=== PATIENT | male | born 1935 | race Caucasian/White ===

== ENCOUNTER 2017-03-24 10:11 | Inpatient (IN) | payer BC, MEDICARE ==
[2017-03-24] MEDS ORDERED: ALBUTEROL SULFATE 0.083% NEB 2.5 MG/3 ML AMPUL NEB ONE (10:27)
--- NOTE | 2017-03-24 11:34 | RADIOLOGY REPORT (SQ) ---
EXAM DESCRIPTION: CT HEAD WITHOUT COMPLETED DATE/TIME: 03/24/2017 11:24 am REASON FOR STUDY: ams COMPARISON: None. TECHNIQUE: Axial images acquired through the brain without intravenous contrast. Images reviewed wi th bone, brain and subdural windows. Images stored on PACS. All CT scanners at this facility use dose modulation, iterative reconstruction, and/or weight based d osing when appropriate to reduce radiation dose to as low as reasonably achievable (ALARA). [facility]: Dose Right [facility]: CareDose [facility]: Dose Right [facility]: Teradose 4D [facility]: [employer] RADIATION DOSE: CT Rad equipment meets quality standard of care and radiation dose reduction techniq ues were employed. CTDIvol: 28.0 mGy. DLP: 1166 mGy-cm. mGy. LIMITATIONS: Motion artifact, patient scanned twice FINDINGS: Motion artifact, patient scanned twice. On images without motion, there is no gross acute intracranial hemorrhage, mass effect, or midline sh ift. No hydrocephalus. White matter disease in the bifrontal and biparietal regions. Question old lacunar infarct right cer ebellar hemisphere. There is fluid in the sphenoid sinus and mucous membrane thickening in the right maxillary sinus IMPRESSION: Very limited study. No gross acute intracranial hemorrhage mass effect or midline shift . EVIDENCE OF ACUTE STROKE: NO. COMMENT: Quality ID # [id number]: Final reports with documentation of one or more dose reduction techniques (e.g., Automated exposure control, adjustment of the mA and/or kV according to patient size, use of iterative reconstruction technique) TECHNICAL DOCUMENTATION: JOB ID: [id number] [employer]- All Rights Reserved
[2017-03-24] MEDS ORDERED: KETAMINE HCL INJ 500 MG/10 ML VIAL IV ONE (12:05)
--- NOTE | 2017-03-24 12:51 | ER Document Report ---
Doctor's Note Notes: 03/24/17 12:46 TONG Anderson saw the patient initially. Patient was hostile and angry and did not want anything performed on him. Iliac CAT scan and chest x-ray were ordered however they were unable to obtain them secondary to the patient's combativeness and reluctance to have the test done. TONG Anderson and I went to the patient's room to talk to the family as well as the patient. On entering the room the patient appeared as a cachectic male lying in the gurney in no acute distress. He was wearing 2 L of nasal cannula and satting 96%. Patient's sons as well as his were in the room. According to the and a son, the patient was found with his oxygen off with decreased mentation this morning. They stated that the patient is normally in his bed and he gets up sometimes to ambulate to a commode. He had a point with his primary medical doctor today for consult for in home help for the but the brought the patient here instead for evaluation. The patient has not had any fevers nausea vomiting lately. The states that he is not eating however 1 of the son states that he is. I attempted to talk to the patient to see if he was alert and oriented 3 and have the capacity to refuse medical care. He angrily pushed me away when I attempted to examine him. Dated leave me the hell alone I do not want anything done. I asked him his name he said Yuli. He also gave the incorrect year. The patient's family members state that the patient is normally argumentative and feisty. Since I could not elicit that the patient had the capacity to refuse medical care I talked to the . She stated at this point that she would like everything done as far as testing. Asked her what the patient's wishes would be and if he has ever talked to her about end-of-life care. I did ask her what the patient's wishes were if he ever discussed with her his end-of-life care. She states that all he said was he "wants to in his own bed at his own house". I did let the family know including the that in order to get the testing including urinalysis, CAT scan and blood work, the patient would need to be sedated. The at this point agreed to this. Tell her I was indeed not done talking to her about it. I stated that she needed to know that the risks of giving him sedating medications is moderate to high and that these medications can decrease his respiratory drive making him stop breathing. 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 Patient's stated she still wanted this done. She wanted to know what is going on. I discussed with the nurse practitioner that I would give ketamine 0.5 mix per kick IV. This was done. CT and chest x- ray as well as blood work and urinalysis were obtained. When the patient was coming back from his radiological studies, his pulse ox did drop to the 70s. The patient's pulse ox did increase quickly with 100% nonrebreather. Patient is currently 100% on his pulse ox. 03/24/17 12:54
--- NOTE | 2017-03-24 12:51 | ER Document Report ---
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 Son states that he went to the bedroom to wake him up and patient did not have his oxygen on which he usually wears, 2 L all the time, at home. Patient was not responsive to sun. states that last night he did not want to eat anymore and told the that he "just wants water and no more food." They deny that he is complained of anything for the last couple of days and that he was pretty much acting normally until yesterday around dinnertime. Patient is combative and unable to tell me anything or answer any questions. Patient continues to say "just leave me the piss alone!" TRAVEL OUTSIDE OF THE [place] IN LAST 30 DAYS: No - Related Data Allergies/Adverse Reactions: No Known Allergies Allergy (Verified 03/25/14 05:39) Past Medical History - General Information source: Patient - Social History Smoking Status: Former Smoker Family History: Reviewed & Not Pertinent Patient has suicidal ideation: No Patient has homicidal ideation: No - Past Medical History Cardiac Medical History: Reports: Hx Hypertension Pulmonary Medical History: Reports: Hx COPD Renal/ Medical History: Denies: Hx Peritoneal Dialysis - Immunizations Hx Diphtheria, Pertussis, Tetanus Vaccination: Yes Hx Pneumococcal Vaccination: 01/31/14 Review of Systems - Review of Systems Constitutional: No symptoms reported EENT: No symptoms reported Cardiovascular: See HPI Respiratory: See HPI Gastrointestinal: No symptoms reported Genitourinary: No symptoms reported Male Genitourinary: No symptoms reported Musculoskeletal: No symptoms reported Skin: No symptoms reported Hematologic/Lymphatic: No symptoms reported Neurological/Psychological: See HPI Physical Exam - Vital signs Vitals: Resp BP 23 H 125/67 03/24/17 10:21 03/24/17 10:21 - Notes Notes: PHYSICAL EXAMINATION: GENERAL: cachectic, chronically ill-appearing, on nasal cannula oxygen, but in no acute distress. HEAD: Atraumatic, normocephalic. EYES: Pupils equal round and reactive to light, sclera anicteric, conjunctiva are normal. ENT: Moist mucous membranes. LUNGS: rhonchi right lower lobe, No wheezes rales HEART: Regular rate and rhythm without murmurs ABDOMEN: pt combative, will not cooperate EXTREMITIES: pt combative, will not cooperate, no pitting edema. No cyanosis. NEUROLOGICAL: pt combative, will not cooperate PSYCH:pt combative, will not cooperate SKIN: Warm, Dry, normal turgor, no rashes or lesions noted Course - Re-evaluation Re-evalutation: 03/24/17 14:12 Pt is not cooperative, swings at staff and answers questions such as "what is your name?" "Esmerelda" and "where are you?" "Piss off." cannot assess neuro exam due to this. Family wants "everything done, somethings wrong!" So ketamine was given to sedate pt in order to obtain CT of the head, chest x-ray, blood work and urinalysis. CT of the head negative for any abnormality, chest x-ray reports a right lower lobe pneumonia, urinalysis clear for infection, lab work reveals a normal white blood cell count but elevated absolute neutrophils, VBG reports a pH of 7.29 and a PCO2 of 99.6, patient was placed on BiPAP at this time. Patient's CO2 on chemistry is 44. Patient also has an elevated troponin of 2.99. No EKG changes. No obvious ischemia on EKG. He did have a long discussion with the family who made him a DO NOT RESUSCITATE during this visit, they do not want him intubated and they do not want chest compressions if the instance were to happen where his heart were to stop or he were to code. I did also discuss his elevated troponin and that that likely means that he may be having a heart attack at this time with the and son, they do not want him to have any kind of invasive procedures such as cardiac catheterization. I did explain the procedure to them. They would like for him to stay here and do noninvasive medication instead. Patient tolerating BiPAP. Maddy Driscoll NP accepts pt for admission at this time. 03/24/17 14:18 - Vital Signs Vital signs: Temp Pulse Resp BP Pulse Ox 99.5 F 28 H 135/75 H 03/24/17 11:12 03/24/17 11:01 03/24/17 11:00 - Laboratory Result Diagrams: 03/24/17 12:58 03/24/17 12:58 Laboratory results interpreted by me: 03/24/17 03/24/17 03/24/17 12:30 12:58 12:58 MCHC 31.6 L RDW 15.6 H Seg Neuts % (Manual) 95 H Lymphocytes % (Manual) 2 L Abs Neuts (Manual) 9.5 H Abs Lymphs (Manual) 0.2 L VBG pH VBG pCO2 VBG HCO3 Potassium 5.1 H Chloride 90 L Carbon Dioxide 44 H* BUN 22 H Glucose 141 H AST 88 H CK-MB (CK-2) Urine Protein 30 H Urine Blood SMALL H Urine Urobilinogen 4.0 H 03/24/17 03/24/17 12:58 12:58 MCHC RDW Seg Neuts % (Manual) Lymphocytes % (Manual) Abs Neuts (Manual) Abs Lymphs (Manual) VBG pH 7.29 L VBG pCO2 99.6 H* VBG HCO3 46.4 H Potassium Chloride Carbon Dioxide BUN Glucose AST CK-MB (CK-2) 16.10 H Urine Protein Urine Blood Urine Urobilinogen Critical Care Note - Critical Care Note Total time excluding time spent on procedures (mins): 35 - 35 minutes spent in critical care time with patient, consulted with attending, speaking with family , placing orders and evaluating tests and labs. Discharge - Discharge Clinical Impression: NSTEMI (non-ST elevated myocardial infarction), DNR (do not resuscitate) COPD (chronic obstructive pulmonary disease) Qualifiers: COPD type: unspecified COPD Qualified Code(s): J44.9 - Chronic obstructive pulmonary disease, unspecified Pneumonia Qualifiers: Pneumonia type: due to unspecified organism Laterality: right Lung location: lower lobe of lung Qualified Code(s): J18.1 - Lobar pneumonia, unspecified organism Condition: Fair Disposition: ADMITTED INPATIENT Admitting Provider: Hospitalist - Dr. Millan Unit Admitted: Telemetry
--- NOTE | 2017-03-24 13:00 | RADIOLOGY REPORT (SQ) ---
EXAM DESCRIPTION: CT HEAD WITHOUT COMPLETED DATE/TIME: 03/24/2017 12:49 pm REASON FOR STUDY: ams COMPARISON: CT brain 03/24/2017, 1115 hours TECHNIQUE: Axial images acquired through the brain without intravenous contrast. Images reviewed wi th bone, brain and subdural windows. Images stored on PACS. All CT scanners at this facility use dose modulation, iterative reconstruction, and/or weight based d osing when appropriate to reduce radiation dose to as low as reasonably achievable (ALARA). [facility]: Dose Right [facility]: CareDose [facility]: Dose Right [facility]: Teradose 4D [facility]: [employer] RADIATION DOSE: 92 mGy. LIMITATIONS: Motion artifact, patient scanned twice FINDINGS: No CT evidence of acute large territory ischemic change, acute intracranial hemorrhage, ma ss effect, or midline shift. Moderate bifrontal and biparietal small vessel ischemic change in the h emispheric white matter. Benign calcifications of the choroid plexus. No skull fracture. There is an air-fluid level in the right sphenoid sinus from acute sinusitis, and mucous membrane thickening in the right maxillary sinus. Mastoid air cells demonstrate trace fluid inferiorly. Report discussed with Lilly FORTUNE in the emergency room IMPRESSION: Limited study. Chronic white matter disease. Right sphenoid sinusitis EVIDENCE OF ACUTE STROKE: NO. COMMENT: Quality ID # [id number]: Final reports with documentation of one or more dose reduction techniques (e.g., Automated exposure control, adjustment of the mA and/or kV according to patient size, use of iterative reconstruction technique) TECHNICAL DOCUMENTATION: JOB ID: [id number] [employer]- All Rights Reserved
[2017-03-24 13:02] LABS: APPEARANCE,URINE CLOUDY; BILIRUBIN,URINE NEGATIVE (NEGATIVE); COLOR,URINE YELLOW; GLUCOSE, URINE NEGATIVE (NEGATIVE); KETONES,URINE NEGATIVE (NEGATIVE); LEUKOCYTE ESTERASE,URINE NEGATIVE (NEGATIVE); NITRITE,URINE NEGATIVE (NEGATIVE); PROTEIN,URINE 30 mg/dL (NEGATIVE); URINE SPECIFIC GRAVITY 1.015
[2017-03-24 13:12] LABS: HEMATOCRIT 46.6 % (37.9-51.0); HEMOGLOBIN 14.7 g/dL (13.5-17.0); MEAN CORPUSCULAR HEMOGLOBIN 28.1 pg (27.0-33.4); MEAN CORPUSCULAR HGB CONC 31.6 g/dL (32.0-36.0); MEAN CORPUSCULAR VOLUME 89 fl (80-97); PLATELET COUNT 249 10^3/uL (150-450); RED BLOOD COUNT 5.24 10^6/uL (4.35-5.55); RED CELL DISTRIBUTION WIDTH 15.6 % (11.5-14.0); VENOUS BLOOD BASE EXCESS 14.4 mmol/L; VENOUS BLOOD HCO3 46.4 mmol/L (20-32); VENOUS BLOOD PH 7.29 (7.30-7.42)
[2017-03-24 13:14] LABS: VENOUS BLOOD PCO2 99.6 mmHg (35-63)
--- NOTE | 2017-03-24 13:15 | RADIOLOGY REPORT (SQ) ---
EXAM DESCRIPTION: CHEST SINGLE VIEW COMPLETED DATE/TIME: 03/24/2017 1:05 pm REASON FOR STUDY: ams COMPARISON: Chest films 03/25/2014, 02/22/2014 EXAM PARAMETERS: NUMBER OF VIEWS: One view. TECHNIQUE: Single frontal radiographic view of the chest acquired. RADIATION DOSE: NA LIMITATIONS: None. FINDINGS: LUNGS AND PLEURA: Compared to prior studies there is now consolidation at the right lung b ase atelectasis versus pneumonia. Small right pleural effusion may be present. Left lung hyperinflated and hyperlucent from obstructive disease. There is mild pulmonary vascular p rominence and underlying fluid overload or congestive failure could not be excluded. No pneumothorax. MEDIASTINUM AND HILAR STRUCTURES: Rotated, no gross lesions HEART AND VASCULAR STRUCTURES: Rotated, no gross cardiomegaly BONES: No acute findings. HARDWARE: None in the chest. OTHER: No other significant finding. IMPRESSION: Since prior study 03/25/2014, patient has developed a small right pleural effusion and co nsolidation in the right lower lobe worrisome for pneumonia. This should be followed to radiographic clearing, to exclude an underlying right hilar mass and postobstructive pneumonia TECHNICAL DOCUMENTATION: JOB ID: [id number]- All Rights Reserved
[2017-03-24] MEDS ORDERED: LEVOFLOXACIN 750 MG/D5W RTU 750 MG/150 ML RTUPB IV ONE (13:28)
[2017-03-24 13:30] LABS: ALANINE AMINOTRANSFERASE 55 U/L (21-72); ALBUMIN 3.7 g/dL (3.5-5.0); ALKALINE PHOSPHATASE 69 U/L (38-126); ASPARTATE AMINO TRANSFERASE 88 U/L (17-59); BILIRUBIN,DIRECT 0.2 mg/dL (0.0-0.4); BILIRUBIN,TOTAL 0.8 mg/dL (0.2-1.3); BLOOD UREA NITROGEN 22 mg/dL (7-20); CALCIUM 9.9 mg/dL (8.4-10.2); CHLORIDE 90 mmol/L (98-107); CREATINE KINASE 144 U/L (55-170); GLUCOSE 141 mg/dL (75-110); POTASSIUM 5.1 mmol/L (3.6-5.0); SODIUM 144.6 mmol/L (137-145)
[2017-03-24 13:37] LABS: ANION GAP 11 (5-19)
[2017-03-24 13:38] LABS: CARBON DIOXIDE 44 mmol/L (22-30)
[2017-03-24 13:42] LABS: CREATINE KINASE MB 16.1 ng/mL (<4.55)
[2017-03-24 13:45] LABS: TROPONIN I 2.99 ng/mL
[2017-03-24 13:47] LABS: ABSOLUTE LYMPHOCYTES# (MANUAL) 0.2 10^3/uL (0.5-4.7); ABSOLUTE MONOCYTES # (MANUAL) 0.3 10^3/uL (0.1-1.4); ABSOLUTE NEUTROPHILS# (MANUAL) 9.5 10^3/uL (1.7-8.2); BASOPHILS % (MANUAL) 0 % (0-2); EOSINOPHILS % (MANUAL) 0 % (0-6); LYMPHOCYTES % (MANUAL) 2 % (13-45); MONOCYTES % (MANUAL) 3 % (3-13); SEGMENTED NEUTROPHILS % (MAN) 95 % (42-78); TOTAL CELLS COUNTED 100
[2017-03-24 13:48] LABS: ANISOCYTOSIS SLIGHT; HYPOCHROMASIA SLIGHT; PLATELET CLUMPS PRESENT
[2017-03-24] MEDS ORDERED: IPRATROPIUM/ALBUTEROL 0.5-2.5 MG/3 ML AMPUL NEB PRN (14:04)
[2017-03-24] MEDS ORDERED: NORMAL SALINE 1000 ML 1,000 ML IV PRN (14:04)
[2017-03-24] MEDS ORDERED: ACETAMINOPHEN 650 MG SUPP.RECT PR PRN (14:04)
--- NOTE | 2017-03-24 16:31 | PDOC H&P ---
History of Present Illness Admission Date/PCP: 03/24/17 15:09 Patient complains of: Altered mental status History of Present Illness: MARANDA MALIK is a 82 year old male who was noted by his and son to be altered when he awoke this am. 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 Son states that he went to the bedroom to wake him up and patient did not have his oxygen on which he usually wears, 2 L all the time, at home. Patient was not responsive to his son. states that last night he did not want to eat anymore and told the that he "just wants water and no more food." They deny that he is complained of anything for the last couple of days and that he was pretty much acting normally until yesterday around dinnertime. Patient is combative and unable to tell me anything or answer any questions upon arrival in the ER. The patient initially was a full code when he arrived and the family wanted everything done. He was given ketamine IV in order to obtain lab works and CT scans. After lengthy discussion with the ER providers the patient' s wishes him to be a DNR and not have any invasive testing. He was found to have a positive troponin and do not want any cardiac workup. Patient continues to say "just leave me the piss alone!" Past Medical History Cardiac Medical History: Reports: Hypertension Pulmonary Medical History: Reports: Chronic Obstructive Pulmonary Disease (COPD ) - on home oxygen EENT Medical History: Reports: None Neurological Medical History: Reports: None Endocrine Medical History: Reports: None Renal/ Medical History: Reports: None Malignancy Medical History: Reports: None GI Medical History: Reports: None Musculoskeltal Medical History: Reports: None Skin Medical History: Reports: None Psychiatric Medical History: Reports: None Traumatic Medical History: Reports: None Hematology: Reports: None Past Surgical History Past Surgical History: Reports: None Social History Information Source: Relative Lives with: Family Smoking Status: Former Smoker Number of Years Smokin Last Time Smoked: 2011 Frequency of Alcohol Use: None Hx Recreational Drug Use: No Hx Prescription Drug Abuse: No - Advance Directive Resuscitation Status: Do Not Resuscitate Surrogate healthcare decision maker:: is his MPOA per guidelines of the [facility] Family History Family History: COPD Parental Family History Reviewed: Yes Children Family History Reviewed: Yes Sibling(s) Family History Reviewed.: Yes Medication/Allergy Home Medications: Albuterol Sulfate [Albuterol Sulfate Hfa] 2.5 mg IH Q4H PRN 02/22/14 Aspirin [Ecotrin 81 mg EC Tablet] 81 mg PO DAILY #0 tabec 02/22/14 Fluticasone/Salmeterol [Advair 500-50 Diskus 28 Dose] 1 inh PO Q12 02/22/14 Isosorbide Mononitrate [Imdur 30 mg Tablet.er] 30 mg PO DAILY 02/22/14 Metoprolol Tartrate [Lopressor 100 mg Tablet] 100 mg PO BID 02/22/14 Tamsulosin HCl [Flomax 0.4 mg Cap.sr] 0.4 mg PO DAILY 02/22/14 Tiotropium [place] [Spiriva Handihaler 18 mcg/dose (30 Dose)] 1 inh PO DAILY Amox Tr/Potassium Clavulanate [Augmentin 875-125 mg Tablet] 1 tab PO BID #14 tablet 03/25/14 Allergies/Adverse Reactions: No Known Allergies Allergy (Verified 03/25/14 05:39) Review of Systems ROS unobtainable: Due to mental status Physical Exam Vital Signs: Temp Pulse Resp BP Pulse Ox 99.5 F 28 H 135/75 H 03/24/17 11:12 03/24/17 11:01 03/24/17 11:00 General appearance: PRESENT: disheveled, mild distress - secondary to agitation , thin Head exam: PRESENT: atraumatic, normocephalic Eye exam: PRESENT: conjunctiva pale, PERRLA Mouth exam: PRESENT: dry mucosa, neck supple, tongue midline Teeth exam: PRESENT: edentulous Neck exam: ABSENT: carotid bruit, JVD, lymphadenopathy, thyromegaly Respiratory exam: PRESENT: decreased breath sounds, prolonged expiratory phas, rhonchi, symmetrical Cardiovascular exam: PRESENT: RRR, +S1, +S2 Pulses: PRESENT: normal carotid pulses, normal radial pulses Vascular exam: PRESENT: normal capillary refill GI/Abdominal exam: PRESENT: normal bowel sounds, soft. ABSENT: distended, guarding, mass, organolmegaly, rebound, tenderness Rectal exam: PRESENT: deferred Gentrourinary exam: PRESENT: ecchymosis Extremities exam: PRESENT: clubbing Musculoskeletal exam: PRESENT: full ROM Neurological exam: PRESENT: altered, reflexes normal Psychiatric exam: PRESENT: agitated Skin exam: PRESENT: abrasion - bilateral forearms, dry, warm Results Impressions: Chest X-Ray 03/24/17 12:42 IMPRESSION: Since prior study 03/25/2014, patient has developed a small right pleural effusion and consolidation in the right lower lobe worrisome for pneumonia. This should be followed to radiographic clearing, to exclude an underlying right hilar mass and postobstructive pneumonia Head CT 03/24/17 12:42 IMPRESSION: Limited study. Chronic white matter disease. Right sphenoid sinusitis EVIDENCE OF ACUTE STROKE: NO. Assessment & Plan - Diagnosis (1) Acute respiratory failure with hypoxia and hypercapnia Is this a current diagnosis for this admission?: Yes Plan: Patient was found to have oxygen saturations of 70% on 2 L and a PCO2 of 99.6. He was agitated and combative. Lengthy conversation with the family they have decided to make him a DO NOT RESUSCITATE. They do not want him intubated and placed on the ventilator. They want no further invasive testing done (2) DNR (do not resuscitate) Is this a current diagnosis for this admission?: Yes Plan: Lengthy discussions with the emergency room providers and myself guarding his poor prognosis and outcomes. They have decided to change his CODE STATUS to DO NOT RESUSCITATE (3) NSTEMI (non-ST elevated myocardial infarction) Is this a current diagnosis for this admission?: Yes Plan: Likely secondary to increased cardiac demand due to hypoxemia. Family does not want any further invasive cardiac testing done (4) Pneumonia Qualifiers: Pneumonia type: due to unspecified organism Laterality: right Lung location: lower lobe of lung Qualified Code(s): J18.1 - Lobar pneumonia, unspecified organism Plan: IV broad spectrum antibiotics. steroids and nebulizers. BIPAP until mentation improves . May proceed to comfort care if not (5) COPD (chronic obstructive pulmonary disease) Qualifiers: COPD type: unspecified COPD Qualified Code(s): J44.9 - Chronic obstructive pulmonary disease, unspecified Is this a current diagnosis for this admission?: Yes Plan: As above (6) Coronary atherosclerosis Qualifiers: Coronary Disease-Associated Artery/Lesion type: [place] artery Is this a current diagnosis for this admission?: Yes Plan: Patient's mentation is to poor at present time to take pills orally without aspirating. Will continue aspirin and statin if improves (7) HTN (hypertension) Qualifiers: Hypertension type: essential hypertension Qualified Code(s): I10 - Essential (primary) hypertension Is this a current diagnosis for this admission?: Yes Plan: PRN IV antihypertensives until mentation improves (8) Protein-calorie malnutrition, severe Is this a current diagnosis for this admission?: Yes Plan: Evidenced by BMI of 16.9, muscle wasting and poor skin turgor. Not safe for oral intake at the present time due to mentation - Time Time Spent: 50 to 70 Minutes Critical Time spent with patient: 35 or more minutes Medications reviewed and adjusted accordingly: Yes Anticipated discharge: SNF
[2017-03-24] MEDS: IPRATROPIUM/ALBUTEROL 0.5-2.5 MG/3 ML AMPUL NEB SCH (19:34)
[2017-03-24] MEDS ORDERED: FAMOTIDINE INJ/PF 20 MG/2 ML SDV IV SCH (22:00)
--- NOTE | 2017-03-24 23:33 | EKG REPORT ---
SEVERITY:- ABNORMAL ECG - SINUS RHYTHM PROBABLE LEFT VENTRICULAR HYPERTROPHY BORDERLINE PROLONGED QT INTERVAL : Confirmed by: Elizabeth Torres 24-Mar-2017 23:33:22
--- NOTE | 2017-03-24 23:33 | EKG REPORT ---
SEVERITY:- ABNORMAL ECG - SINUS RHYTHM PROBABLE LEFT VENTRICULAR HYPERTROPHY : Confirmed by: Elizabeth Torres 24-Mar-2017 23:33:09
[2017-03-25] MEDS: HEPARIN SOD (PORCINE) 5,000 UNIT/ML 1 ML SYRINGE SUBCUT SCH ×4 (03:38→21:51)
[2017-03-25 03:55] LABS: ABSOLUTE LYMPHOCYTES (AUTO) 0.7 10^3/uL (0.5-4.7); ABSOLUTE MONOCYTES (AUTO) 0.8 10^3/uL (0.1-1.4); BASOPHILS % (AUTO) 0.2 % (0-2); HEMATOCRIT 38.1 % (37.9-51.0); LYMPHOCYTES % (AUTO) 7.9 % (13-45); MEAN CORPUSCULAR HEMOGLOBIN 28.1 pg (27.0-33.4); MEAN CORPUSCULAR HGB CONC 32.2 g/dL (32.0-36.0); MEAN CORPUSCULAR VOLUME 87 fl (80-97); MONOCYTES % (AUTO) 9.3 % (3-13); PLATELET COUNT 202 10^3/uL (150-450); RED BLOOD COUNT 4.36 10^6/uL (4.35-5.55); RED CELL DISTRIBUTION WIDTH 15.8 % (11.5-14.0); SEGMENTED NEUTROPHILS % (AUTO) 82.6 % (42-78); TOTAL CELLS COUNTED % (AUTO) 100 %; WHITE BLOOD COUNT 8.5 10^3/uL (4.0-10.5)
[2017-03-25 04:15] LABS: HEMOGLOBIN 12.3 g/dL (13.5-17.0)
[2017-03-25 04:18] LABS: ALANINE AMINOTRANSFERASE 50 U/L (21-72); ALBUMIN 3.1 g/dL (3.5-5.0); ALKALINE PHOSPHATASE 53 U/L (38-126); ASPARTATE AMINO TRANSFERASE 79 U/L (17-59); BILIRUBIN,DIRECT 0.4 mg/dL (0.0-0.4); BILIRUBIN,TOTAL 0.4 mg/dL (0.2-1.3); BLOOD UREA NITROGEN 36 mg/dL (7-20); CALCIUM 9.2 mg/dL (8.4-10.2); CHLORIDE 94 mmol/L (98-107); GLUCOSE 88 mg/dL (75-110); POTASSIUM 4.8 mmol/L (3.6-5.0); SODIUM 143.7 mmol/L (137-145)
[2017-03-25 04:32] LABS: ANION GAP 7 (5-19)
[2017-03-25 04:33] LABS: CARBON DIOXIDE 43 mmol/L (22-30)
[2017-03-25] MEDS ORDERED: ZOLPIDEM TARTRATE 5 MG TABLET PO PRN (08:33)
[2017-03-25] MEDS ORDERED: ONDANSETRON HCL INJ/PF 4 MG/2 ML SDV IV PRN (08:33)
[2017-03-25] MEDS: IPRATROPIUM/ALBUTEROL 0.5-2.5 MG/3 ML AMPUL NEB SCH ×3 (08:38→20:37)
[2017-03-25] MEDS: NORMAL SALINE 1000 ML 1,000 ML IV PRN ×2 (10:04→18:38)
[2017-03-25] MEDS ORDERED: INFLUENZA ADLT QUAD (36MOS+) 2017-18 VAC 0.5 ML SYR IM PRN (12:02)
[2017-03-25] MEDS: METHYLPREDNISOLONE INJ 40 MG/1 ML SDV IV SCH ×2 (12:38→18:36)
[2017-03-25] MEDS: GUAIFENESIN 600 MG TABLET.SA PO SCH ×2 (12:39→21:51)
[2017-03-25] MEDS ORDERED: NORMAL SALINE 1000 ML 1,000 ML IV PRN (14:17)
--- NOTE | 2017-03-25 14:34 | PDOC PROGRESS REPORT ---
Subjective Progress Note for:: 03/25/17 Subjective:: He reports that feels better. Patient states that he had loss 120 pounds during this past year. Review of systems All organ systems evaluated and negative except as seen subjective All laboratories and significant diagnostics had been reviewed Reason For Visit: PNEUMONIA/ACUTE RESPIRATORY FAILURE WITH HYPOXIA Physical Exam Vital Signs: Temp Pulse Resp BP Pulse Ox 99.5 F 107 H 18 177/87 H 98 03/24/17 11:12 03/24/17 19:34 03/25/17 07:02 03/25/17 07:02 03/25/17 07:02 General appearance: PRESENT: no acute distress, cooperative, thin Head exam: PRESENT: atraumatic, normocephalic Eye exam: PRESENT: conjunctiva pink, EOMI, PERRLA Ear exam: PRESENT: normal external ear exam, TM's normal bilaterally Mouth exam: PRESENT: moist, neck supple Neck exam: PRESENT: full ROM. ABSENT: JVD, lymphadenopathy, tenderness, thyromegaly Respiratory exam: PRESENT: decreased breath sounds. ABSENT: tachypnea, unlabored, wheezes Cardiovascular exam: PRESENT: RRR. ABSENT: diastolic murmur, systolic murmur Vascular exam: PRESENT: normal capillary refill GI/Abdominal exam: PRESENT: normal bowel sounds, soft. ABSENT: tenderness Extremities exam: PRESENT: full ROM. ABSENT: joint swelling, pedal edema Musculoskeletal exam: PRESENT: ambulatory Neurological exam: PRESENT: alert, awake, oriented to person, oriented to place , oriented to time, oriented to situation, CN II-XII grossly intact Skin exam: PRESENT: dry, normal color Results Laboratory Results: 03/25/17 03:45 03/25/17 03:45 03/25/17 03/25/17 03:45 03:45 WBC 8.5 RBC 4.36 Hgb 12.3 L D Hct 38.1 MCV 87 MCH 28.1 MCHC 32.2 RDW 15.8 H Plt Count 202 Seg Neutrophils % 82.6 H Lymphocytes % 7.9 L Monocytes % 9.3 Eosinophils % 0.0 Basophils % 0.2 Absolute Neutrophils 7.0 Absolute Lymphocytes 0.7 Absolute Monocytes 0.8 Absolute Eosinophils 0.0 Absolute Basophils 0.0 Sodium 143.7 Potassium 4.8 Chloride 94 L Carbon Dioxide 43 H* Anion Gap 7 BUN 36 H Creatinine 1.13 Est GFR ( Amer) > 60 Est GFR (Non-Af Amer) > 60 Glucose 88 Calcium 9.2 Total Bilirubin 0.4 AST 79 H ALT 50 Alkaline Phosphatase 53 Total Protein 6.0 L Albumin 3.1 L Impressions: Chest X-Ray 03/24/17 12:42 IMPRESSION: Since prior study 03/25/2014, patient has developed a small right pleural effusion and consolidation in the right lower lobe worrisome for pneumonia. This should be followed to radiographic clearing, to exclude an underlying right hilar mass and postobstructive pneumonia Head CT 03/24/17 12:42 IMPRESSION: Limited study. Chronic white matter disease. Right sphenoid sinusitis EVIDENCE OF ACUTE STROKE: NO. Assessment & Plan - Diagnosis (1) Acute respiratory failure with hypoxia and hypercapnia Is this a current diagnosis for this admission?: Yes Plan: Continue with bipap (2) NSTEMI (non-ST elevated myocardial infarction) Is this a current diagnosis for this admission?: Yes Plan: Due to myocardial demand ischemia (3) Protein-calorie malnutrition, severe Is this a current diagnosis for this admission?: Yes Plan: Dietitian consult. Will add remeron to boost appetite. (4) COPD (chronic obstructive pulmonary disease) Qualifiers: COPD type: unspecified COPD Qualified Code(s): J44.9 - Chronic obstructive pulmonary disease, unspecified Is this a current diagnosis for this admission?: Yes Plan: Continue current management (5) Encephalopathy acute Is this a current diagnosis for this admission?: Yes Plan: Due to increased CO2. Improved when compared to admission (6) DILEEP (acute kidney injury) Is this a current diagnosis for this admission?: Yes Plan: Likely due to volume contraction and will trend BMP. Continue IV fluids - Time Time Spent with patient: 15-24 minutes Medications reviewed and adjusted accordingly: Yes Anticipated discharge: Acute Rehab Within: within 72 hours - Inpatient Certification Based on my medical assessment, after consideration of the patient's comorbidities, presenting symptoms, or acuity I expect that the services needed warrant INPATIENT care.: Yes I certify that my determination is in accordance with my understanding of Medicare's requirements for reasonable and necessary INPATIENT services [42 CFR 412.3e].: Yes Medical Necessity: Need Close Monitoring Due to Risk of Patient Decompensation, Need For IV Fluids, Need for IV Antibiotics
[2017-03-26] MEDS ORDERED: LISINOPRIL 10 MG TABLET PO ONE (00:15)
[2017-03-26] MEDS: METHYLPREDNISOLONE INJ 40 MG/1 ML SDV IV SCH ×3 (02:29→22:14)
[2017-03-26] MEDS: HEPARIN SOD (PORCINE) 5,000 UNIT/ML 1 ML SYRINGE SUBCUT SCH ×3 (06:18→22:14)
[2017-03-26] MEDS: NORMAL SALINE 1000 ML 1,000 ML IV PRN ×2 (06:18→16:33)
[2017-03-26 06:25] LABS: HEMATOCRIT 41.8 % (37.9-51.0); HEMOGLOBIN 13.3 g/dL (13.5-17.0); MEAN CORPUSCULAR HEMOGLOBIN 28.1 pg (27.0-33.4); MEAN CORPUSCULAR HGB CONC 31.7 g/dL (32.0-36.0); MEAN CORPUSCULAR VOLUME 89 fl (80-97); PLATELET COUNT 198 10^3/uL (150-450); RED BLOOD COUNT 4.71 10^6/uL (4.35-5.55); WHITE BLOOD COUNT 6.9 10^3/uL (4.0-10.5)
[2017-03-26 06:40] LABS: ANION GAP 11 (5-19); BLOOD UREA NITROGEN 41 mg/dL (7-20); CALCIUM 9.3 mg/dL (8.4-10.2); CARBON DIOXIDE 35 mmol/L (22-30); CHLORIDE 99 mmol/L (98-107); GLUCOSE 78 mg/dL (75-110); MAGNESIUM 1.8 mg/dL (1.6-2.3); POTASSIUM 4.9 mmol/L (3.6-5.0); SODIUM 145.2 mmol/L (137-145)
[2017-03-26 06:45] LABS: ABSOLUTE LYMPHOCYTES# (MANUAL) 0.1 10^3/uL (0.5-4.7); ABSOLUTE NEUTROPHILS# (MANUAL) 6.8 10^3/uL (1.7-8.2); BASOPHILS % (MANUAL) 0 % (0-2); EOSINOPHILS % (MANUAL) 0 % (0-6); LYMPHOCYTES % (MANUAL) 1 % (13-45); MONOCYTES % (MANUAL) 0 % (3-13); SEGMENTED NEUTROPHILS % (MAN) 99 % (42-78); TOTAL CELLS COUNTED 100
[2017-03-26 06:49] LABS: ANISOCYTOSIS 1+; HYPOCHROMASIA SLIGHT; OVALOCYTES SLIGHT; PLATELET COMMENT ADEQUATE; POIKILOCYTOSIS SLIGHT; TOXIC GRANULATION SLIGHT; TOXIC VACUOLATION PRESENT
[2017-03-26] MEDS ORDERED: HYDRALAZINE HCL INJ/PF 20 MG/1 ML SDV IV PRN (07:27)
[2017-03-26] MEDS: IPRATROPIUM/ALBUTEROL 0.5-2.5 MG/3 ML AMPUL NEB SCH (08:48)
[2017-03-26] MEDS: AMLODIPINE BESYLATE 10 MG TABLET PO SCH (09:49)
[2017-03-26] MEDS: GUAIFENESIN 600 MG TABLET.SA PO SCH ×2 (09:50→22:14)
[2017-03-26] MEDS: LISINOPRIL 10 MG TABLET PO SCH ×2 (09:51→22:15)
[2017-03-26] MEDS ORDERED: LEVOFLOXACIN 750 MG/D5W RTU 750 MG/150 ML RTUPB IV SCH (10:00)
[2017-03-26] MEDS: FLUTICASONE/SALMETEROL DISKUS 500-50 MCG/DOSE IH SCH ×2 (10:39→22:15)
[2017-03-26] MEDS: AZITHROMYCIN 250 MG TABLET PO SCH (10:42)
[2017-03-26] MEDS ORDERED: TIOTROPIUM BROMIDE DPI 5 CAP/KIT (18 MCG/CAP) IH ONE (11:00)
--- NOTE | 2017-03-26 16:10 | PDOC PROGRESS REPORT ---
Subjective Progress Note for:: 03/26/17 Subjective:: He reports feeling better. Complains of feeling [age]. Review of systems All organ systems evaluated and negative except as seen subjective All laboratories and significant diagnostics had been reviewed Reason For Visit: PNEUMONIA/ACUTE RESPIRATORY FAILURE WITH HYPOXIA Physical Exam Vital Signs: Temp Pulse Resp BP Pulse Ox 97.6 F 87 18 178/88 H 98 03/26/17 03:36 03/26/17 03:36 03/26/17 04:31 03/26/17 03:36 03/26/17 03:36 Intake & Output 03/25/17 03/26/17 03/27/17 06:59 06:59 06:59 Intake Total 869 Output Total 500 Balance 369 Weight 50.3 kg 50.9 kg General appearance: PRESENT: no acute distress, cooperative, thin Head exam: PRESENT: atraumatic, normocephalic Eye exam: PRESENT: EOMI, PERRLA Ear exam: PRESENT: normal external ear exam Mouth exam: PRESENT: moist, neck supple Neck exam: PRESENT: full ROM. ABSENT: JVD, lymphadenopathy, tenderness Respiratory exam: PRESENT: clear to auscultation pedrito Cardiovascular exam: PRESENT: RRR. ABSENT: diastolic murmur, systolic murmur Vascular exam: PRESENT: normal capillary refill GI/Abdominal exam: PRESENT: normal bowel sounds, soft. ABSENT: tenderness Extremities exam: ABSENT: clubbing, full ROM, joint swelling, pedal edema Musculoskeletal exam: PRESENT: ambulatory Neurological exam: PRESENT: alert, oriented to person, oriented to place, oriented to time, oriented to situation, CN II-XII grossly intact Psychiatric exam: PRESENT: appropriate affect, normal mood Skin exam: PRESENT: intact, normal color Results Laboratory Results: 03/26/17 05:22 03/26/17 05:52 03/26/17 03/26/17 05:22 05:52 WBC 6.9 RBC 4.71 Hgb 13.3 L Hct 41.8 MCV 89 MCH 28.1 MCHC 31.7 L RDW 16.0 H Plt Count 198 Seg Neutrophils % Not Reportable Lymphocytes % Not Reportable Monocytes % Not Reportable Eosinophils % Not Reportable Basophils % Not Reportable Absolute Neutrophils Not Reportable Absolute Lymphocytes Not Reportable Absolute Monocytes Not Reportable Absolute Eosinophils Not Reportable Absolute Basophils Not Reportable Sodium 145.2 H Potassium 4.9 Chloride 99 Carbon Dioxide 35 H Anion Gap 11 BUN 41 H Creatinine 0.88 Est GFR ( Amer) > 60 Est GFR (Non-Af Amer) > 60 Glucose 78 Calcium 9.3 Magnesium 1.8 03/26/17 05:52 Troponin I 1.030 Impressions: Chest X-Ray 03/24/17 12:42 IMPRESSION: Since prior study 03/25/2014, patient has developed a small right pleural effusion and consolidation in the right lower lobe worrisome for pneumonia. This should be followed to radiographic clearing, to exclude an underlying right hilar mass and postobstructive pneumonia Head CT 03/24/17 12:42 IMPRESSION: Limited study. Chronic white matter disease. Right sphenoid sinusitis EVIDENCE OF ACUTE STROKE: NO. Assessment & Plan - Diagnosis (1) Acute respiratory failure with hypoxia and hypercapnia Is this a current diagnosis for this admission?: Yes Plan: Continue with bipap but prn (2) NSTEMI (non-ST elevated myocardial infarction) Is this a current diagnosis for this admission?: Yes Plan: Due to myocardial demand ischemia (3) Protein-calorie malnutrition, severe Is this a current diagnosis for this admission?: Yes Plan: Dietitian not available. Continue remeron to boost appetite. (4) COPD (chronic obstructive pulmonary disease) Qualifiers: COPD type: unspecified COPD Qualified Code(s): J44.9 - Chronic obstructive pulmonary disease, unspecified Is this a current diagnosis for this admission?: Yes Plan: Continue current management (5) Encephalopathy acute Is this a current diagnosis for this admission?: Yes Plan: Due to increased CO2. Resolved (6) DILEEP (acute kidney injury) Is this a current diagnosis for this admission?: Yes Plan: Likely due to volume contraction and will trend BMP. Continue IV fluids. Trend BMP. - Time Time Spent with patient: 15-24 minutes Medications reviewed and adjusted accordingly: Yes Anticipated discharge: Acute Rehab Within: within 48 hours - Inpatient Certification Based on my medical assessment, after consideration of the patient's comorbidities, presenting symptoms, or acuity I expect that the services needed warrant INPATIENT care.: Yes I certify that my determination is in accordance with my understanding of Medicare's requirements for reasonable and necessary INPATIENT services [42 CFR 412.3e].: Yes Medical Necessity: Need Close Monitoring Due to Risk of Patient Decompensation
[2017-03-26] MEDS: MIRTAZAPINE 15 MG TABLET PO SCH (22:14)
[2017-03-27] MEDS: HEPARIN SOD (PORCINE) 5,000 UNIT/ML 1 ML SYRINGE SUBCUT SCH ×3 (06:16→21:31)
[2017-03-27] MEDS: GUAIFENESIN 600 MG TABLET.SA PO SCH ×2 (10:20→21:31)
[2017-03-27] MEDS: METHYLPREDNISOLONE INJ 40 MG/1 ML SDV IV SCH (10:20)
[2017-03-27] MEDS: LISINOPRIL 10 MG TABLET PO SCH ×2 (10:41→21:31)
[2017-03-27] MEDS: FLUTICASONE/SALMETEROL DISKUS 500-50 MCG/DOSE IH SCH ×2 (10:41→21:31)
[2017-03-27] MEDS: AZITHROMYCIN 250 MG TABLET PO SCH (10:41)
[2017-03-27] MEDS: AMLODIPINE BESYLATE 10 MG TABLET PO SCH (10:41)
--- NOTE | 2017-03-27 13:53 | PDOC PROGRESS REPORT ---
Subjective Progress Note for:: 03/27/17 Subjective:: He reports feeling better. Family is at bedside and updated about patient presentation and appeared to understand what was explained to them. Encouraged to make an appointment Dr. Sanders for follow-up after discharge and since patient may benefit from BiPAP at home Review of systems All organ systems evaluated and negative except as seen subjective All laboratories and significant diagnostics had been reviewed Reason For Visit: PNEUMONIA/ACUTE RESPIRATORY FAILURE WITH HYPOXIA Physical Exam Vital Signs: Temp Pulse Resp BP Pulse Ox 97.6 F 84 15 126/57 H 100 03/27/17 03:55 03/27/17 03:55 03/27/17 03:55 03/27/17 03:55 03/27/17 03:55 Intake & Output 03/26/17 03/27/17 03/28/17 06:59 06:59 06:59 Intake Total 2089 2780 Output Total 500 Balance 1589 2780 Weight 50.9 kg 53.2 kg General appearance: PRESENT: no acute distress, cooperative, thin Head exam: PRESENT: atraumatic, normocephalic Eye exam: PRESENT: EOMI, scleral icterus Ear exam: PRESENT: normal external ear exam, TM's normal bilaterally Mouth exam: PRESENT: moist, neck supple Neck exam: PRESENT: full ROM. ABSENT: JVD, tenderness Respiratory exam: PRESENT: clear to auscultation pedrito, decreased breath sounds Cardiovascular exam: PRESENT: RRR. ABSENT: diastolic murmur, systolic murmur Vascular exam: PRESENT: normal capillary refill GI/Abdominal exam: PRESENT: normal bowel sounds, soft. ABSENT: tenderness Extremities exam: PRESENT: full ROM. ABSENT: joint swelling, pedal edema Musculoskeletal exam: PRESENT: full ROM Neurological exam: PRESENT: alert, awake, oriented to person, oriented to place , oriented to time, oriented to situation, CN II-XII grossly intact Psychiatric exam: PRESENT: appropriate affect, normal mood Skin exam: PRESENT: dry Results Laboratory Results: 03/26/17 05:22 03/26/17 05:52 03/26/17 05:52 Troponin I 1.030 Impressions: Chest X-Ray 03/24/17 12:42 IMPRESSION: Since prior study 03/25/2014, patient has developed a small right pleural effusion and consolidation in the right lower lobe worrisome for pneumonia. This should be followed to radiographic clearing, to exclude an underlying right hilar mass and postobstructive pneumonia Head CT 03/24/17 12:42 IMPRESSION: Limited study. Chronic white matter disease. Right sphenoid sinusitis EVIDENCE OF ACUTE STROKE: NO. Assessment & Plan - Diagnosis (1) Acute respiratory failure with hypoxia and hypercapnia Is this a current diagnosis for this admission?: Yes Plan: Continue with bipap but prn (2) NSTEMI (non-ST elevated myocardial infarction) Is this a current diagnosis for this admission?: Yes Plan: Due to myocardial demand ischemia (3) Protein-calorie malnutrition, severe Is this a current diagnosis for this admission?: Yes Plan: Dietitian not available. Continue remeron to boost appetite. (4) COPD (chronic obstructive pulmonary disease) Qualifiers: COPD type: unspecified COPD Qualified Code(s): J44.9 - Chronic obstructive pulmonary disease, unspecified Is this a current diagnosis for this admission?: Yes Plan: Continue current management (5) Encephalopathy acute Is this a current diagnosis for this admission?: Yes Plan: Due to increased CO2. Resolved (6) DILEEP (acute kidney injury) Is this a current diagnosis for this admission?: Yes Plan: Likely due to volume contraction. (7) HTN (hypertension) Qualifiers: Hypertension type: essential hypertension Qualified Code(s): I10 - Essential (primary) hypertension Is this a current diagnosis for this admission?: Yes Plan: Continue present management (8) Pneumonia Qualifiers: Pneumonia type: due to unspecified organism Laterality: right Lung location: lower lobe of lung Qualified Code(s): J18.1 - Lobar pneumonia, unspecified organism Is this a current diagnosis for this admission?: Yes Plan: Continue Zithromax and repeat chest x-ray - Time Time Spent with patient: 15-24 minutes Medications reviewed and adjusted accordingly: Yes Anticipated discharge: Home Within: within 24 hours - Inpatient Certification Based on my medical assessment, after consideration of the patient's comorbidities, presenting symptoms, or acuity I expect that the services needed warrant INPATIENT care.: Yes I certify that my determination is in accordance with my understanding of Medicare's requirements for reasonable and necessary INPATIENT services [42 CFR 412.3e].: Yes Medical Necessity: Need Close Monitoring Due to Risk of Patient Decompensation
[2017-03-27] MEDS: MIRTAZAPINE 15 MG TABLET PO SCH (21:31)
[2017-03-28] MEDS: HEPARIN SOD (PORCINE) 5,000 UNIT/ML 1 ML SYRINGE SUBCUT SCH ×3 (06:05→22:00)
--- NOTE | 2017-03-28 08:52 | RADIOLOGY REPORT (SQ) ---
EXAM DESCRIPTION: CT CHEST WITH COMPLETED DATE/TIME: 03/27/2017 7:25 pm REASON FOR STUDY: eval for malignancy COMPARISON: Chest x-ray dated 03/24/2017. TECHNIQUE: CT scan of the chest performed using helical scanning technique with dynamic intravenous contrast injection. Images reviewed with lung, soft tissue and bone windows. Reconstructed coronal and sagittal MPR images reviewed. All images stored on PACS. All CT scanners at this facility use dose modulation, iterative reconstruction, and/or weight based d osing when appropriate to reduce radiation dose to as low as reasonably achievable (ALARA). [facility]: Dose Right [facility]: CareDose [facility]: Dose Right [facility]: Teradose 4D [facility]: CyberDefender CONTRAST TYPE AND DOSE: contrast/concentration: Isovue 370.00 mg/ml; Total Contrast Delivered: 80.0 ml; Total Saline Delivered: 55.0 ml RENAL FUNCTION: BUN 41 creatinine 0.88. RADIATION DOSE: CT Rad equipment meets quality standard of care and radiation dose reduction techniq ues were employed. CTDIvol: 5.4 mGy. DLP: 232 mGy-cm. . LIMITATIONS: None. FINDINGS: LUNGS AND PLEURA: Severe bullous emphysema. Chronic parenchymal scarring. Mild atelectas is in the right lower lobe. No suspicious pulmonary nodules or masses. Moderate right pleural effus ion. No pneumothorax. HILAR AND MEDIASTINAL STRUCTURES: No identified masses or abnormal nodes. HEART AND VASCULAR STRUCTURES: No aneurysm or dissection. No central pulmonary emboli. No pericardi al effusion. HARDWARE: None in the chest. UPPER ABDOMEN: No significant findings. Limited exam. THYROID AND OTHER SOFT TISSUES: No masses. No adenopathy. BONES: No significant finding. OTHER: No other significant finding. IMPRESSION: SEVERE BULLOUS EMPHYSEMA WITH CHRONIC SCARRING. MODERATE RIGHT PLEURAL EFFUSION. MILD ATELECTASIS IN THE RIGHT LOWER LOBE. NO SUSPICIOUS PULMONARY MASSES AND NO ADENOPATHY. TECHNICAL DOCUMENTATION: JOB ID: [id number] Quality ID # [id number]: Final reports with documentation of one or more dose reduction techniques (e.g., Au tomated exposure control, adjustment of the mA and/or kV according to patient size, use of iterative reconstruction technique) 2010 [employer]- All Rights Reserved
--- NOTE | 2017-03-28 09:29 | RADIOLOGY REPORT (SQ) ---
EXAM DESCRIPTION: CHEST SINGLE VIEW COMPLETED DATE/TIME: 03/28/2017 9:08 am REASON FOR STUDY: follow up COMPARISON: None. NUMBER OF VIEWS: One view. TECHNIQUE: Single frontal radiographic image of the chest acquired. LIMITATIONS: None. FINDINGS: LUNGS AND PLEURA: COPD. Persistent right pleural effusion and associated airspace disease . MEDIASTINUM AND HEART: Stable heart size and mediastinal structures. BONY STRUCTURES: No acute findings. HARDWARE: None. OTHER: No other significant finding. IMPRESSION: COPD. Right pleural effusion. No significant change. TECHNICAL DOCUMENTATION: JOB ID: [id number]
[2017-03-28] MEDS: AZITHROMYCIN 250 MG TABLET PO SCH (09:59)
[2017-03-28] MEDS: LISINOPRIL 10 MG TABLET PO SCH ×2 (10:00→22:00)
[2017-03-28] MEDS ORDERED: PREDNISONE 20 MG TABLET PO SCH (10:00)
[2017-03-28] MEDS: AMLODIPINE BESYLATE 10 MG TABLET PO SCH (10:01)
[2017-03-28] MEDS: GUAIFENESIN 600 MG TABLET.SA PO SCH ×2 (10:01→22:00)
[2017-03-28] MEDS: FLUTICASONE/SALMETEROL DISKUS 500-50 MCG/DOSE IH SCH ×2 (10:01→22:00)
--- NOTE | 2017-03-28 18:24 | PDOC PROGRESS REPORT ---
Subjective Progress Note for:: 03/28/17 Subjective:: Patient refers that feels somewhat short of breath. He wishes to go back home. He does not go want to go to a long-term or rehab. I had conversation with his who wanted for him to go for 21 day rehab since at the present time is difficult for her to take care of him. Also there appears to be some monetary issues Review of systems All organ systems evaluated and negative except as seen subjective All laboratories and significant diagnostics had been reviewed Reason For Visit: PNEUMONIA/ACUTE RESPIRATORY FAILURE WITH HYPOXIA Physical Exam Vital Signs: Temp Pulse Resp BP Pulse Ox 98.5 F 93 20 151/73 H 99 03/28/17 08:21 03/28/17 08:21 03/28/17 08:21 03/28/17 08:21 03/28/17 10:29 Intake & Output 03/27/17 03/28/17 03/29/17 06:59 06:59 06:59 Intake Total 3880 1040 Output Total 750 Balance 3880 290 Weight 53.2 kg 57.1 kg General appearance: PRESENT: cooperative, mild distress, other - cachectic Head exam: PRESENT: atraumatic, normocephalic Eye exam: PRESENT: EOMI, PERRLA Ear exam: PRESENT: normal external ear exam Mouth exam: PRESENT: moist, neck supple Neck exam: PRESENT: full ROM. ABSENT: JVD, lymphadenopathy Respiratory exam: PRESENT: crackles, decreased breath sounds Cardiovascular exam: PRESENT: RRR. ABSENT: diastolic murmur, systolic murmur Vascular exam: PRESENT: normal capillary refill GI/Abdominal exam: PRESENT: normal bowel sounds, soft. ABSENT: tenderness Extremities exam: PRESENT: full ROM. ABSENT: joint swelling, pedal edema Neurological exam: PRESENT: alert, awake, oriented to person, oriented to place , oriented to time, oriented to situation, CN II-XII grossly intact Psychiatric exam: PRESENT: appropriate affect, normal mood Results Laboratory Results: 03/26/17 05:22 03/26/17 05:52 03/26/17 01:44 Clean Catch Midstream Urine Culture - Final NO GROWTH 2 DAYS 03/26/17 05:52 Troponin I 1.030 Impressions: Head CT 03/24/17 12:42 IMPRESSION: Limited study. Chronic white matter disease. Right sphenoid sinusitis EVIDENCE OF ACUTE STROKE: NO. Chest CT 03/27/17 00:00 IMPRESSION: SEVERE BULLOUS EMPHYSEMA WITH CHRONIC SCARRING. MODERATE RIGHT PLEURAL EFFUSION. MILD ATELECTASIS IN THE RIGHT LOWER LOBE. NO SUSPICIOUS PULMONARY MASSES AND NO ADENOPATHY. Chest X-Ray 03/28/17 07:00 IMPRESSION: COPD. Right pleural effusion. No significant change. Assessment & Plan - Diagnosis (1) Acute respiratory failure with hypoxia and hypercapnia Is this a current diagnosis for this admission?: Yes Plan: Continue with bipap prn. Will benefit from bipap as outpatient (2) NSTEMI (non-ST elevated myocardial infarction) Is this a current diagnosis for this admission?: Yes Plan: Due to myocardial demand ischemia (3) Protein-calorie malnutrition, severe Is this a current diagnosis for this admission?: Yes Plan: Seen by dietitian. Continue remeron to boost appetite. (4) COPD (chronic obstructive pulmonary disease) Qualifiers: COPD type: unspecified COPD Qualified Code(s): J44.9 - Chronic obstructive pulmonary disease, unspecified Is this a current diagnosis for this admission?: Yes Plan: Continue current management (5) Encephalopathy acute Is this a current diagnosis for this admission?: Yes Plan: Due to increased CO2. Resolved (6) DILEEP (acute kidney injury) Is this a current diagnosis for this admission?: Yes Plan: Likely due to volume contraction. Trend (7) HTN (hypertension) Qualifiers: Hypertension type: essential hypertension Qualified Code(s): I10 - Essential (primary) hypertension Is this a current diagnosis for this admission?: Yes Plan: Continue present management (8) Pneumonia Qualifiers: Pneumonia type: due to unspecified organism Laterality: right Lung location: lower lobe of lung Qualified Code(s): J18.1 - Lobar pneumonia, unspecified organism Is this a current diagnosis for this admission?: Yes Plan: CT of the chest negative for pneumonia. Continue antibiotic treatment for COPD treatment - Time Time Spent with patient: 15-24 minutes Medications reviewed and adjusted accordingly: Yes Anticipated discharge: Home with Homehealth Within: within 48 hours - Inpatient Certification Based on my medical assessment, after consideration of the patient's comorbidities, presenting symptoms, or acuity I expect that the services needed warrant INPATIENT care.: Yes I certify that my determination is in accordance with my understanding of Medicare's requirements for reasonable and necessary INPATIENT services [42 CFR 412.3e].: Yes Medical Necessity: Need Close Monitoring Due to Risk of Patient Decompensation, Need for Nebulizer Therapy and Monitoring of Response
[2017-03-28] MEDS: MIRTAZAPINE 15 MG TABLET PO SCH (22:00)
[2017-03-29] MEDS: HEPARIN SOD (PORCINE) 5,000 UNIT/ML 1 ML SYRINGE SUBCUT SCH (05:36)
[2017-03-29 05:47] VITALS: BP 172/86
[2017-03-29 06:28] LABS: ABSOLUTE BASOPHILS # (AUTO) 0.1 10^3/uL (0.0-0.2); ABSOLUTE LYMPHOCYTES (AUTO) 1.1 10^3/uL (0.5-4.7); ABSOLUTE MONOCYTES (AUTO) 0.7 10^3/uL (0.1-1.4); ABSOLUTE NEUT (AUTO) 10.2 10^3/uL (1.7-8.2); BASOPHILS % (AUTO) 0.7 % (0-2); HEMATOCRIT 41.4 % (37.9-51.0); HEMOGLOBIN 12.8 g/dL (13.5-17.0); LYMPHOCYTES % (AUTO) 8.8 % (13-45); MEAN CORPUSCULAR HEMOGLOBIN 28.4 pg (27.0-33.4); MEAN CORPUSCULAR HGB CONC 30.9 g/dL (32.0-36.0); MEAN CORPUSCULAR VOLUME 92 fl (80-97); MONOCYTES % (AUTO) 6.2 % (3-13); PLATELET COUNT 283 10^3/uL (150-450); RED CELL DISTRIBUTION WIDTH 16.6 % (11.5-14.0); SEGMENTED NEUTROPHILS % (AUTO) 84.3 % (42-78); TOTAL CELLS COUNTED % (AUTO) 100 %; WHITE BLOOD COUNT 12.1 10^3/uL (4.0-10.5)
[2017-03-29 06:45] LABS: BLOOD UREA NITROGEN 34 mg/dL (7-20); CALCIUM 9.7 mg/dL (8.4-10.2); CHLORIDE 99 mmol/L (98-107); GLUCOSE 268 mg/dL (75-110); MAGNESIUM 1.7 mg/dL (1.6-2.3)
[2017-03-29 06:59] LABS: ANION GAP 6 (5-19)
[2017-03-29 07:03] LABS: CARBON DIOXIDE 39 mmol/L (22-30)
--- NOTE | 2017-03-29 15:12 | Death Summary ---
Summary Date : 03/29/17 Time of :: 07:26 Autopsy: No Resuscitation Status: Do Not Resuscitate - Final Diagnosis (1) Acute respiratory failure with hypoxia and hypercapnia Is this a current diagnosis for this admission?: Yes (3) NSTEMI (non-ST elevated myocardial infarction) Is this a current diagnosis for this admission?: Yes (4) Protein-calorie malnutrition, severe Is this a current diagnosis for this admission?: Yes (5) Encephalopathy acute Is this a current diagnosis for this admission?: Yes (6) DILEEP (acute kidney injury) Is this a current diagnosis for this admission?: Yes (7) HTN (hypertension) Is this a current diagnosis for this admission?: Yes Hospital Course:: Patient was brought in to emergency room by family members out of concern that patient had been increasing daily confused. Upon evaluation patient was found to be hypoxic and hypercapnic requiring BiPAP. He responded to BiPAP therapy which was then administered at bedtime. Patient had profound protein calorie malnutrition. Dietitian was consulted and assisted in this regard. On admission there was a concern about the possibility of pneumonia however CT scan of the chest failed to demonstrate any infiltrates but some areas of atelectasis but no actual pneumonic process. There was a troponin elevation which was deemed to be due to myocardial demand ischemia. Patient had been made DO NOT RESUSCITATE on admission. Family had been kept abreast about patient 's medical condition. His wanted for him to go to rehab however she was made aware that patient was too debilitated to undergo rigorous rehab. We consulted case management and patient was being considered for rehab with possible transition to palliative care. Unfortunately patient respiratory status declined despite an initial improvement and he passed on March 29, 2017 at 7:26AM. Family had been notified by nurse.
== END 2017-03-29 10:30 | DRG 189 ==
LOC: ER 10:11 → EH 15:09 → 4S 03-25 13:17 → UNDODISIN 03-29 05:30
PROVIDERS: ADMIT Internal Medicine; ATTEND Internal Medicine
PROC: 5A09457 Assistance with Respiratory Ventilation, 24-96 Consecutive Hours, Continuous Positive Airway Pressure (ICD-10-PCS; principal; 2017-03-24)
PROC: 3E0F73Z Introduction of Anti-inflammatory into Respiratory Tract, Via Natural or Artificial Opening (ICD-10-PCS; 2017-03-24)
DX: J96.21 Acute and chronic respiratory failure with hypoxia (principal); I21.A1 Myocardial infarction type 2; E43 Unspecified severe protein-calorie malnutrition; G93.40 Encephalopathy, unspecified; Z68.1 Body mass index [BMI] 19.9 or less, adult; N17.9 Acute kidney failure, unspecified; J96.22 Acute and chronic respiratory failure with hypercapnia; I10 Essential (primary) hypertension; Z66 Do not resuscitate; J43.9 Emphysema, unspecified; J32.3 Chronic sphenoidal sinusitis; I25.10 Atherosclerotic heart disease of native coronary artery without angina pectoris; Z79.82 Long term (current) use of aspirin; Z99.81 Dependence on supplemental oxygen; Z87.891 Personal history of nicotine dependence; Z79.899 Other long term (current) drug therapy; Z86.73 Personal history of transient ischemic attack (TIA), and cerebral infarction without residual deficits; Z83.6 Family history of other diseases of the respiratory system
CPT/HCPCS: 36415; 70450; 71045; 71260; 80048; 80053; 81001; 82550; 82553; 82803; 83735; 84484; 85025; 87040; 87086; 93005; 93010; 94660; 99291; G8978-GP; G8979-GP; J1644; J1956; J2920; J3490; J7030; J7512; J7620